=== PATIENT | female | born 1985 | race Hispanic/Latino ===

== ENCOUNTER 2018-03-30 19:38 | Inpatient (IN) | payer OTHER, MEDICAID ==
[~2018-03-30] VITALS: Ht 160 cm; Wt 84.8 kg
[~2018-03-30 19:38] MED LIST: PNV1TABL77 PO
[2018-03-30 20:14] LABS: APPEARANCE,URINE Clear (CLEAR); BILIRUBIN,URINE Negative (NEGATIVE); COLOR,URINE Yellow (YELLOW); GLUCOSE, URINE (UA) Negative (NEGATIVE); KETONES,URINE Negative (NEGATIVE); LEUKOCYTE ESTERASE ,URINE Large (NEGATIVE); NITRATE,URINE Negative (NEGATIVE); OCCULT BLOOD,URINE Negative (NEGATIVE); PH,URINE 5.5 (5.0-8.0); PROTEIN,URINE Negative (NEGATIVE)
[2018-03-30 20:45] LABS: BACTERIA,URINE Few /HPF (None Seen); MUCUS,URINE Few LPF (None Seen); RBC,URINE None Seen /HPF (0-1)
[2018-03-30] MEDS ORDERED: EPHEDRINE SULFATE 50 MG/ML AMPULE IVP PRN (22:30)
[2018-03-30] MEDS ORDERED: NALOXONE HCL 0.4 MG/1 ML ML IV PRN (22:30)
[2018-03-30] MEDS ORDERED: LACTATED RINGERS 500 ML 500 ML IV PRN (22:30)
[2018-03-30 23:54] LABS: HEMATOCRIT 32.5 % (36-48); MEAN CORPUSCULAR HEMOGLOBIN 26.7 pg (27.0-33.0); MEAN CORPUSCULAR HGB CONC 32.9 g/dL (32.0-36.0); MEAN CORPUSCULAR VOLUME 81.1 fL (79-99); PLATELET COUNT (AUTO) 236 K/uL (130-400); RED BLOOD CELL COUNT(AUTO) 4.01 MIL/uL (4.00-5.50); RED CELL DISTRIBUTION WIDTH 17.4 % (11.0-15.5)
[2018-03-31] MEDS: LACTATED RINGERS 1000ML 1,000 ML IV PRN ×3 (00:08→06:53)
[2018-03-31] MEDS: CLINDAMYCIN 600 MG/D5% WATER 50 ML IVPB SCH ×3 (00:08→22:30)
[2018-03-31] MEDS ORDERED: PROMETHAZINE HCL 25 MG/ML 1ML AMPULE IM ONE (03:30)
[2018-03-31] MEDS ORDERED: MEPERIDINE-PF 50 MG/ML SYG IVP ONE (03:30)
[2018-03-31] MEDS ORDERED: OXYTOCIN-LR 20 UNITS/1000 ML 1,000 ML IV PRN (03:38)
[2018-03-31] MEDS ORDERED: DEXTROSE 5 %-0.45 % NACL 1,000 ML IV PRN (03:45)
[2018-03-31] MEDS ORDERED: MEPERIDINE-PF 75 MG/ML SYG IM PRN (03:45)
[2018-03-31] MEDS ORDERED: PROMETHAZINE HCL 25 MG/ML 1ML AMPULE IM PRN (03:45)
[2018-03-31] MEDS ORDERED: SODIUM CHLORIDE 0.9% 10 ML VIAL IVP PRN (03:45)
[2018-03-31 08:22] LABS: RAPID PLASMA REAGIN NONREACTIVE (NONREACTIVE)
[2018-03-31] MEDS ORDERED: LACTATED RINGERS 1000ML 1,000 ML IV ONE ×2 (09:15→15:18)
[2018-03-31] MEDS ORDERED: OXYTOCIN 10 USP UNITS/ML ONE ×3 (09:15→21:46)
[2018-03-31] MEDS ORDERED: OXYTOCIN 10 USP UNITS/ML 20 UNIT in LACTATED RINGERS 1000ML 1,000 ML IV SCH (09:15)
[2018-03-31] MEDS ORDERED: METHYLERGONOVINE MALEATE 0.2 MG/1 ML ML ONE (14:50)
[2018-03-31] MEDS ORDERED: ACETAMINOPHEN-CODEINE 300/30MG TAB PO PRN (15:00)
[2018-03-31] MEDS ORDERED: OXYTOCIN-LR 20 UNITS/1000 ML 1,000 ML IV SCH (15:00)
[2018-03-31] MEDS ORDERED: DIPH,PERTUSS(ACELL),TET VAC/PF 0.5 ML VIAL IM PRN (15:00)
[2018-03-31] MEDS ORDERED: HYDROCODONE/ACETAMINOPHEN 5/325 MG TAB PO PRN (15:00)
[2018-03-31] MEDS ORDERED: BENZOCAINE/LANOLIN/ALOE VERA 60 ML AEROSOL TP PRN (15:00)
[2018-03-31] MEDS ORDERED: LANOLIN 30GM OINTMENT TP PRN (15:00)
[2018-03-31] MEDS ORDERED: METHYLERGONOVINE MALEATE 0.2 MG/1 ML ML IM SCH (15:00)
[2018-03-31] MEDS ORDERED: ACETAMINOPHEN 325 MG TAB PO PRN (15:00)
[2018-03-31] MEDS ORDERED: WITCH HAZEL 1 PAD TP PRN (15:00)
[2018-03-31] MEDS ORDERED: MEASLES/MUMPS/RUBELLA VACCINE, LIVE 0.5 ML/VIAL SQ PRN (15:00)
[2018-03-31 16:10] VITALS: BP 131/85
[2018-03-31] MEDS: IBUPROFEN 800 MG TAB PO PRN (18:53)
[2018-03-31 19:38] VITALS: BP 113/69
[2018-03-31] MEDS: DOCUSATE SODIUM 100 MG CAP PO SCH (21:18)
[2018-04-01 00:50] VITALS: BP 122/67
[2018-04-01] MEDS ORDERED: IBUPROFEN 800 MG TAB PO SCH (03:45)
[2018-04-01] MEDS: CLINDAMYCIN 600 MG/D5% WATER 50 ML IVPB SCH (04:30)
[2018-04-01 04:42] VITALS: BP 122/73
[2018-04-01 06:24] LABS: HEMATOCRIT 31.9 % (36-48); MEAN CORPUSCULAR HEMOGLOBIN 28.2 pg (27.0-33.0); MEAN CORPUSCULAR HGB CONC 34.7 g/dL (32.0-36.0); MEAN CORPUSCULAR VOLUME 81.2 fL (79-99); PLATELET COUNT (AUTO) 225 K/uL (130-400); RED BLOOD CELL COUNT(AUTO) 3.93 MIL/uL (4.00-5.50); RED CELL DISTRIBUTION WIDTH 17.6 % (11.0-15.5); WHITE BLOOD COUNT (AUTO) 11.6 K/uL (4.8-10.8)
[2018-04-01 07:20] VITALS: BP 91/69
[2018-04-01 07:29] LABS: HEPATITIS Bs ANTIGEN SCREEN P Negative (Negative)
[2018-04-01] MEDS: DOCUSATE SODIUM 100 MG CAP PO SCH (08:52)
[2018-04-01] MEDS: IBUPROFEN 800 MG TAB PO PRN (08:54)
[2018-04-01 11:24] VITALS: BP 111/73
== END 2018-04-01 15:10 | disposition home or self-care (01) | DRG 775 ==
LOC: EDH 19:38 → LDH 19:39 → OBSVTOIN 22:28 → WSH 03-31 16:10
PROVIDERS: ADMIT Specialist; ATTEND Specialist
PROC: 10E0XZZ Delivery of Products of Conception, External Approach (ICD-10-PCS; principal; 2018-03-31)
PROC: 3E0R3BZ Introduction of Anesthetic Agent into Spinal Canal, Percutaneous Approach (ICD-10-PCS; 2018-03-31)
PROC: 00HU33Z Insertion of Infusion Device into Spinal Canal, Percutaneous Approach (ICD-10-PCS; 2018-03-31)
PROC: 3E0234Z Introduction of Serum, Toxoid and Vaccine into Muscle, Percutaneous Approach (ICD-10-PCS; 2018-03-31)
PROC: 3E0134Z Introduction of Serum, Toxoid and Vaccine into Subcutaneous Tissue, Percutaneous Approach (ICD-10-PCS; 2018-03-31)
DX: O80 Encounter for full-term uncomplicated delivery (principal); Z23 Encounter for immunization; Z37.0 Single live birth; Z3A.36 36 weeks gestation of pregnancy
CPT/HCPCS: 36415; 81001; 85027; 86592; 86701; 86850; 86900; 86901; 87340; 87390; 90715; A4314; A4606; J2210; J2590; J3490; J7120

== ENCOUNTER 2024-07-18 07:39 | Emergency (ER) | payer BC, OTHER ==
[~2024-07-18] VITALS: Ht 160 cm; Wt 63.5 kg
[2024-07-18 08:20] LABS: APPEARANCE,URINE CLEAR (CLEAR); BILIRUBIN,URINE NEGATIVE (NEGATIVE); COLOR,URINE COLORLESS (YELLOW); GLUCOSE, URINE (UA) NEGATIVE (NEGATIVE); KETONES,URINE NEGATIVE (NEGATIVE); LEUKOCYTE ESTERASE ,URINE NEGATIVE Leu/uL (NEGATIVE); NITRATE,URINE NEGATIVE (NEGATIVE); OCCULT BLOOD,URINE NEGATIVE (NEGATIVE); PH,URINE 6.5 (5.0-8.0); PROTEIN,URINE NEGATIVE (NEGATIVE); UROBILINOGEN,URINE 0.2 mg/dL (0.2-1.0)
[2024-07-18 08:26] LABS: ADD UA MICROSCOPIC NO
[2024-07-18 08:36] LABS: BASOPHILS # (AUTO) 0.06 K/uL (0.00-0.20); EOSINOPHILS # (AUTO) 0.53 K/uL (0.00-0.70); EOSINOPHILS % (AUTO) 8.9 % (0.0-8.0); HEMATOCRIT 32.2 % (36-48); IMMATURE GRANULOCYTE ABSOLUTE 0.01 K/uL (0-1); LYMPHOCYTES # (AUTO) 1.7 K/uL (1.0-4.8); LYMPHOCYTES % (AUTO) 29.1 % (21.0-51.0); MEAN CORPUSCULAR HEMOGLOBIN 23.4 pg (27.0-33.0); MEAN CORPUSCULAR HGB CONC 31.4 g/dL (32.0-36.0); MEAN CORPUSCULAR VOLUME 74.7 fL (79-99); MONOCYTES # (AUTO) 0.4 K/uL (0.1-1.0); MONOCYTES % (AUTO) 7.2 % (3.0-13.0); NEUTROPHILS # (AUTO) 3.2 K/uL (1.8-7.7); NEUTROPHILS % (AUTO) 53.6 % (40.0-77.0); PLATELET COUNT (AUTO) 398 K/uL (130-400); RED BLOOD CELL COUNT(AUTO) 4.31 MIL/uL (4.00-5.50); RED CELL DISTRIBUTION WIDTH 15.4 % (11.0-15.5)
[2024-07-18 08:54] LABS: ALBUMIN 3.2 g/dL (3.5-5.0); BILIRUBIN,TOTAL 0.2 mg/dL (0.2-1.0); CREATININE 0.7 mg/dL (0.5-1.0); TOTAL PROTEIN, SERUM 6.9 g/dL (6.0-8.3)
[2024-07-18 09:59] VITALS: BP 125/79; PULSE 51; RESP 16; O2SAT 98
== END 2024-07-18 10:13 | disposition home or self-care (01) ==
LOC: EDH 07:39
DX: N93.9 Abnormal uterine and vaginal bleeding, unspecified (principal)
CPT/HCPCS: 36415; 80053; 81003; 83690; 84703; 85025